=== PATIENT | female | born 1940 | race Caucasian/White ===

== ENCOUNTER 2016-10-18 05:39 | Observation (INO) | payer MEDICARE ==
[~2016-10-18] VITALS: Ht 160 cm; Wt 63.6 kg
[~2016-10-18 05:39] MED LIST: ALEN70TA5 PO; ASPI-515 PO; ATOR10TA9 PO; BIFI4CAP PO; CALCIUM CHEWS PO; CHOL20002 PO; COQ10 PO; FEXO180T72 PO; GLUCOSAMINE PO; MAGNESIUM PO; METH500C3 PO; METHYLSULFONYLMETHANE PO; OMEGA 3 PO; POTASSIUM CHLORIDE PO; VITAMIN D PO; VITAMIN K PO
[2016-10-18 07:17] VITALS: BP 131/72
[2016-10-18] MEDS ORDERED: NITROGLYCERIN 0.4 MG/SPRAY SL PRN (07:30)
[2016-10-18] MEDS ORDERED: morphine SULFATE 10 MG/ML, 1ML IV PRN (07:30)
[2016-10-18] MEDS ORDERED: ASPIRIN 325 MG TABLET EC PO ONE (07:30)
[2016-10-18] MEDS ORDERED: NITROGLYCERIN 0.4 MG BOTTLE (25 TABS) SL PRN (07:30)
[2016-10-18] MEDS ORDERED: ACETAMINOPHEN 325 MG TABLET PO PRN (07:30)
[2016-10-18] MEDS ORDERED: SODIUM CHLORIDE FLUSH 10ML SYR IVF SCH (09:00)
[2016-10-18 09:24] LABS: IS PT STATUS REG ER OR PRE ER? NO
[2016-10-18] MEDS ORDERED: AMINOPHYLLINE 25 MG/ML, 10ML ONE (11:18)
[2016-10-18 12:51] VITALS: BP 123/71
[2016-10-18] MEDS ORDERED: CYCLOBENZAPRINE 10 MG TABLET PO PRN (15:00)
[2016-10-18] MEDS ORDERED: ATORVASTATIN 10 MG TABLET PO SCH (21:00)
[2016-10-19] MEDS ORDERED: ASPIRIN 325 MG TABLET EC PO SCH (06:00)
== END 2016-10-18 14:50 | disposition home or self-care (01) ==
LOC: INTOOBSV 07:01 → 5SO 07:01 → DCLOUNGE 14:23
PROVIDERS: ADMIT Internal Medicine; ATTEND Internal Medicine
DX: R07.89 Other chest pain (principal); E78.5 Hyperlipidemia, unspecified; I10 Essential (primary) hypertension; M81.0 Age-related osteoporosis without current pathological fracture
CPT/HCPCS: 36415; 78452; 80061; 84484; 93005; 93017; A9502; C9898; G0378; J0280